=== PATIENT | female | born 1940 | race Caucasian/White ===

== ENCOUNTER → 2016-10-01 | Outpatient (CLI) | payer MEDICARE, OTHER ==
[~2016-10-01] MED LIST: ACHYD1T PO; ASP81TEC PO; CALC-80 PO; DCS100C PO; ESTR1TAB27 PO; ESTR42.52 VG; IBP800T PO; MULT1CAP27 PO; OMEP20CA12 PO
--- NOTE | 2016-10-01 17:53 | Diagnostic Imaging Report ---
CLINICAL INDICATION: Patient with complaints of sciatica, right hip pain, and buttock and lower back pain. EXAM: X-ray of the lumbar spine, three views. COMPARISON: None. FINDINGS: There is no acute lumbar spine fracture. There is multilevel lumbar spine degenerative disease with vertebral body spurs and lower lumbar spine facet arthropathy. There is severe loss of intervertebral disc height at the L4-L5 level and moderate loss at the L3-L4 and L5-S1 levels. There is grade 1 retrolisthesis of L4 on L5. There is mild left curvature of the thoracolumbar spine. There is joint space narrowing and subchondral sclerosis involving the right hip, likely related to degenerative disease. Surgical clips are seen overlying the right upper quadrant which could be related to cholecystectomy changes. The sacroiliac joints, sacrum, and visualized portions of the pelvis are unremarkable. IMPRESSION: 1: There is no acute lumbar spine fracture. 2: There is multilevel lumbar spine degenerative disease including grade 1 anterolisthesis of L4 on L5. 3: There is vxogauba-ln-egobix degenerative disease of the right hip which is partially visualized. Dictated by: Dictated on workstation # [id number]
--- NOTE | 2016-10-01 19:14 | Diagnostic Imaging Report ---
EXAMINATION: AP view of the pelvis and AP and frog lateral views of both hips. INDICATION: Right hip and buttock pain. Back pain. FINDINGS: There are bilateral advanced hip osteoarthritic changes, much worse on the right side with severe joint space loss and prominent osteophytes with near [id number] appearance. Lateral spurs are seen. The left hip demonstrates only mild joint space loss with subchondral sclerosis and spurs noted. The SI joints demonstrate mild degenerative changes. No fracture or dislocation is seen. No radiopaque foreign body. IMPRESSION: Bilateral hip osteoarthritis, severe on the right side and moderate on the left. Dictated by: Dictated on workstation # [id number]
== END ==
LOC: RAD 13:20
PROVIDERS: ATTEND Chiropractor Sports Physician
DX: M47.816 Spondylosis without myelopathy or radiculopathy, lumbar region (principal); M16.0 Bilateral primary osteoarthritis of hip
CPT/HCPCS: 72100; 73523

== ENCOUNTER → 2020-09-25 | Outpatient (CLI) | payer MEDICARE, OTHER ==
[~2020-09-25] MED LIST changes: +GADOBUTROL 10 MMOL/10 ML (GADAVIST) VIAL IV ONE
--- NOTE | 2020-09-25 17:44 | Diagnostic Imaging Report ---
PROCEDURE: MR imaging of the brain without contrast. TECHNIQUE: Multiplanar, multisequence MR imaging of the brain was performed without contrast. INDICATION: Headache. No prior studies are available for comparison. The ventricles and sulci are appropriate for the patient's age. There are mild periventricular white matter changes noted, likely on the basis of chronic microvascular ischemia. There is no diffusion restriction identified to suggest acute ischemia. The normal expected flow-voids within the carotid siphons are seen. No acute intra-axial or extra-axial hemorrhage is detected. The corpus callosum is unremarkable. The sella and parasellar structures are unremarkable. IMPRESSION: Changes of chronic microvascular ischemia. No acute intracranial process is detected. Dictated by: Dictated on workstation # [id number]
== END ==
LOC: RAD 14:49
PROVIDERS: ATTEND Nurse Practitioner Family
DX: I67.82 Cerebral ischemia (principal)
CPT/HCPCS: 70551

== ENCOUNTER 2020-12-18 05:46 | Outpatient (CLI) | payer MEDICARE, OTHER ==
[~2020-12-18] VITALS: Ht 167.7 cm; Wt 88.2 kg
[~2020-12-18 05:46] MED LIST changes: -GADOBUTROL 10 MMOL/10 ML (GADAVIST) VIAL IV ONE
[2020-12-18] MEDS ORDERED: OMEP40CA6 PO (10:05)
[2020-12-18] MEDS ORDERED: ASPI-999 PO (10:05)
[2020-12-18] MEDS ORDERED: FURO20TA4 PO (10:05)
[2020-12-18] MEDS ORDERED: PARO20TA5 PO (10:05)
[2020-12-18] MEDS ORDERED: LEVO25CA4 PO (10:05)
== END 2020-12-18 10:10 | disposition home or self-care (01) ==
LOC: PREOP 05:46
PROVIDERS: ATTEND Specialist
DX: Z01.818 Encounter for other preprocedural examination (principal)

== ENCOUNTER 2020-12-21 10:23 | Day surgery (SDC) | payer MEDICARE, OTHER ==
[~2020-12-21] VITALS: Ht 167.7 cm; Wt 88.2 kg
[~2020-12-21 10:23] MED LIST changes: +ASPI-999 PO; +FURO20TA4 PO; +LEVO25CA4 PO; +OMEP40CA6 PO; +PARO20TA5 PO
[2020-12-21] MEDS: TETRACAINE 0.5% OPHTH SOLN 4 ML BTL (SINGLE DOSE ONLY) OU PRN ×4 (10:39→10:58)
[2020-12-21 10:45] VITALS: BP 119/85
[2020-12-21] MEDS ORDERED: LIDOCAINE PF 1% 2 ML VIAL IR PRN (10:45)
[2020-12-21] MEDS ORDERED: TIMOLOL MALEATE 0.5% 5 ML (TIMOPTIC) BTL OU PRN (10:45)
[2020-12-21] MEDS ORDERED: MOXIFLOXACIN OPHTH SOLN 5 MG/ML 0.3 ML SYRINGE OP ONE (10:45)
[2020-12-21] MEDS ORDERED: POVIDONE (BETADINE) OPHTH SOLN 5% 30 ML OP ONE (10:45)
[2020-12-21] MEDS: PHENYLEPHRINE 10% OPHTH (NEO-SYN) 5 ML BTL OU SCH ×3 (10:46→10:58)
[2020-12-21] MEDS: TROPICAMIDE 1% OPH SOLN (MYDRIACYL) 15 ML BTL OP SCH ×3 (10:47→10:58)
--- NOTE | 2020-12-21 11:14 | Ophthalmologist Pre-Op Note ---
Pre-Operative Progress Note H&P Reviewed The H&P was reviewed, patient examined and no changes noted. Date H&P Reviewed: Dec 21, 2020 Time H&P Reviewed: 11:13 Pre-Op Dx Cataract, Left Eye DANE KRISHNAN MD Dec 21, 2020 11:14
[2020-12-21] MEDS ORDERED: MIDAZOLAM 2 MG/2 ML (VERSED) VIAL ONE (11:17)
--- NOTE | 2020-12-21 11:36 | Ophthalmology Operative Report ---
Cataract removal/placement IOL PREOPERATIVE DIAGNOSIS: Cataract Left Eye POSTOPERATIVE DIAGNOSIS: Cataract Left Eye PROCEDURE: Cataract removal and placement of posterior chamber implant, left eye SURGEON: Carlos Krishnan ANESTHESIA: Topical with sedation COMPLICATIONS: None ESTIMATED BLOOD LOSS: Minimal DESCRIPTION OF PROCEDURE: After proper informed consent was obtained, the patient, a 80 female, was taken to the Operating Room and the left eye was anesthetized with tetracaine. The left eye was then prepped and draped in the usual manner. A wire lid speculum was placed. A paracentesis was made at the left hand position. Preservative free lidocaine was injected into the anterior chamber followed by viscoelastic. A clear corneal incision was made in the temporal position. A capsulorrhexis was preformed and the central nuclear and cortical material were removed. The posterior capsule was polished and an Varinder 22.0 AU00T0 was placed into the capsular bag. The residual viscoelastic was aspirated and balanced saline solution was injected into the anterior chamber. Moxifloxacin was injected into the anterior chamber. The wound was checked and found to be water tight. The patient tolerated the procedure well without complications. CARLOS KRISHNAN MD Dec 21, 2020 11:36
[2020-12-21 11:46] VITALS: BP 130/89
[2020-12-21] MEDS ORDERED: acetaZOLAMIDE ER 500 MG CAP (DIAMOX SEQUELS) PO ONE (12:00)
--- NOTE | 2020-12-21 14:06 | Anesthesia-General Post-Op ---
MAC Patient Condition Mental Status/LOC: Same as Preop Cardiovascular: Satisfactory Nausea/Vomiting: Absent Respiratory: Satisfactory Pain: Controlled Complications: Absent Post Op Complications Complications None Follow Up Care/Instructions Patient Instructions None needed. Anesthesiology Discharge Order Discharge Order Patient is doing well, no complaints, stable vital signs, no apparent adverse anesthesia problems. No complications reported per nursing. MAEVE ESPINOZA CRNA Dec 21, 2020 14:06
== END 2020-12-21 11:46 | disposition home or self-care (01) ==
LOC: SDC 10:23
PROVIDERS: ATTEND Specialist
DX: H25.12 Age-related nuclear cataract, left eye (principal); R06.02 Shortness of breath; R35.0 Frequency of micturition; R51.9 Headache, unspecified; Z79.899 Other long term (current) drug therapy; Z79.82 Long term (current) use of aspirin
CPT/HCPCS: 66984; V2632

== ENCOUNTER 2020-12-28 07:05 | Outpatient (CLI) | payer MEDICARE, OTHER ==
[~2020-12-28] VITALS: Ht 167.7 cm; Wt 88.2 kg
== END 2021-01-02 15:26 | disposition home or self-care (01) ==
LOC: PREOP 07:05
PROVIDERS: ATTEND Specialist
DX: Z01.818 Encounter for other preprocedural examination (principal)

== ENCOUNTER 2021-01-04 10:15 | Day surgery (SDC) | payer MEDICARE, OTHER ==
[~2021-01-04] VITALS: Ht 167.7 cm; Wt 88.2 kg
[2021-01-04] MEDS: TETRACAINE 0.5% OPHTH SOLN 4 ML BTL (SINGLE DOSE ONLY) OU PRN ×4 (10:25→10:42)
[2021-01-04] MEDS ORDERED: TIMOLOL MALEATE 0.5% 5 ML (TIMOPTIC) BTL OU PRN (10:30)
[2021-01-04] MEDS ORDERED: MOXIFLOXACIN OPHTH SOLN 5 MG/ML 0.3 ML SYRINGE OP ONE (10:30)
[2021-01-04] MEDS ORDERED: POVIDONE (BETADINE) OPHTH SOLN 5% 30 ML OP ONE (10:30)
[2021-01-04] MEDS ORDERED: LIDOCAINE PF 1% 2 ML VIAL IR PRN (10:30)
[2021-01-04] MEDS: TROPICAMIDE 1% OPH SOLN (MYDRIACYL) 15 ML BTL OP SCH ×3 (10:31→10:42)
[2021-01-04] MEDS: PHENYLEPHRINE 10% OPHTH (NEO-SYN) 5 ML BTL OU SCH ×3 (10:32→10:42)
[2021-01-04 10:33] VITALS: BP 134/94
--- NOTE | 2021-01-04 10:48 | Ophthalmologist Pre-Op Note ---
Pre-Operative Progress Note H&P Reviewed The H&P was reviewed, patient examined and no changes noted. Date H&P Reviewed: Jan 04, 2021 Time H&P Reviewed: 10:48 Pre-Op Dx Cataract, Right Eye DANE KRISHNAN MD Jan 04, 2021 10:48
[2021-01-04] MEDS ORDERED: MIDAZOLAM 2 MG/2 ML (VERSED) VIAL ONE (10:52)
--- NOTE | 2021-01-04 11:09 | Ophthalmology Operative Report ---
Cataract removal/placement IOL PREOPERATIVE DIAGNOSIS: Cataract Right Eye POSTOPERATIVE DIAGNOSIS: Cataract Right Eye PROCEDURE: Cataract removal and placement of posterior chamber implant, right eye SURGEON: Carlos Krishnan ANESTHESIA: Topical with sedation COMPLICATIONS: None ESTIMATED BLOOD LOSS: Minimal DESCRIPTION OF PROCEDURE: After proper informed consent was obtained, the patient, a 80 female, was taken to the Operating Room and the right eye was anesthetized with tetracaine. The right eye was then prepped and draped in the usual manner. A wire lid speculum was placed. A paracentesis was made at the left hand position. Preservative free lidocaine was injected into the anterior chamber followed by viscoelastic. A clear corneal incision was made in the temporal position. A capsulorrhexis was preformed and the central nuclear and cortical material were removed. The posterior capsule was polished and Varinder [id number] 19.0 IOL was placed into the capsular bag. The residual viscoelastic was aspirated and balanced saline solution was injected into the anterior chamber. Moxifloxacin was injected into the anterior chamber. The wound was checked and found to be water tight. The patient tolerated the procedure well without complications. CARLOS KRISHNAN MD Jan 04, 2021 11:09
[2021-01-04 11:15] VITALS: BP 136/96
--- NOTE | 2021-01-04 11:16 | Anesthesia-General Post-Op ---
MAC Patient Condition Mental Status/LOC: Same as Preop Cardiovascular: Satisfactory Nausea/Vomiting: Absent Respiratory: Satisfactory Pain: Controlled Complications: Absent Post Op Complications Complications None Follow Up Care/Instructions Patient Instructions None needed. Anesthesiology Discharge Order Discharge Order Patient is doing well, no complaints, stable vital signs, no apparent adverse anesthesia problems. No complications reported per nursing. MAYLIN CHOU CRNA Jan 04, 2021 11:16
[2021-01-04] MEDS ORDERED: acetaZOLAMIDE ER 500 MG CAP (DIAMOX SEQUELS) PO ONE (11:45)
== END 2021-01-04 11:16 ==
LOC: SDC 10:15
PROVIDERS: ATTEND Specialist
DX: H25.811 Combined forms of age-related cataract, right eye (principal); Z79.899 Other long term (current) drug therapy; Z79.82 Long term (current) use of aspirin; Z79.890 Hormone replacement therapy; Z90.710 Acquired absence of both cervix and uterus; Z86.73 Personal history of transient ischemic attack (TIA), and cerebral infarction without residual deficits; Z90.89 Acquired absence of other organs; Z80.9 Family history of malignant neoplasm, unspecified
CPT/HCPCS: 66984; V2632

== ENCOUNTER 2021-05-13 19:15 | Inpatient (IN) | payer MEDICARE, OTHER ==
[~2021-05-13] VITALS: Ht 167.7 cm; Wt 92.7 kg
[2021-05-13] MEDS ORDERED: RX-ALBUTEROL INHALER 8.5 GM HFA (PROAIR) IH STA (19:57)
--- NOTE | 2021-05-13 19:57 | ED Respiratory ---
General Chief Complaint: Respiratory Problems Stated Complaint: WEAKNESS Source: patient Exam Limitations: no limitations History of Present Illness Date Seen by Provider: May 13, 2021 Time Seen by Provider: 19:33 Initial Comments Patient to the ER by private conveyance from home with chief complaint of shortness of air weakness. No pain. She had a productive cough but no fevers or chills. She says been going on for couple weeks and she thought it would jus t go away and get better. She has COPD she is not been on steroids. She went to see her primary care physician, Dr. Murray today. She was set up with home oxygen but is still feeling very weak and short of air. No nausea diarrhea or sick contacts. She has to COVID vaccines plus a booster as well as influenza vaccine. She was sent home with some breathing treatments and told to take them tonight but she has not used them yet. Patient states she has a history of atrial fibrillation on 81 mg aspirin daily. Allergies and Home Medications Allergies Coded Allergies: Iodinated Contrast Media (Unverified Allergy, Unknown, 08/04/11) Patient Home Medication List Home Medication List Reviewed: Yes Aspirin (Aspirin) 81 Mg Tab.chew, 81 MG PO DAILY, (Reported) Entered as Reported by: ELVA MEYER on 12/18/201004 Furosemide (Furosemide) 20 Mg Tablet, 20 MG PO DAILY, (Reported) Entered as Reported by: ELVA MEYER on 12/18/201004 Levothyroxine Sodium (Levothyroxine) 25 Mcg Capsule, 25 MCG PO DAILY, (Reported) Entered as Reported by: ELVA MEYER on 12/18/201004 Omeprazole (Omeprazole) 40 Mg Capsule.dr, 40 MG PO DAILY, (Reported) Entered as Reported by: ELVA MEYER on 12/18/201004 Paroxetine HCl (Paroxetine HCl) 20 Mg Tablet, 20 MG PO DAILY, (Reported) Entered as Reported by: ELVA MEYER on 12/18/201004 Review of Systems Review of Systems Constitutional: No chills, No diaphoresis, No fever; malaise, weakness EENTM: No ear discharge, No hearing loss, No ear pain Respiratory: cough, phlegm, short of breath Cardiovascular: No edema, No palpitations Gastrointestinal: No abdominal pain, No constipation, No diarrhea, No nausea Genitourinary: No discharge, No dysuria Musculoskeletal: No back pain, No joint pain All Other Systems Reviewed Negative Unless Noted: Yes Past Ldunsyi-Qscskp-Xrduav Hx Patient Social History Tobacco Use?: No Use of E-Cig and/or Vaping dev: No Past Medical History Reproductive Disorders: No Physical Exam Vital Signs - First Documented 05/13/21 19:15 Temp 35.7 Pulse 136 Resp 30 B/P (MAP) 119/65 (83) Pulse Ox 96 Capillary Refill : Height: '" Weight: lbs. oz. kg; BMI Method:Stated General Appearance: moderate distress, obese Eyes: Bilateral Eye Normal Inspection, Bilateral Eye PERRL, Bilateral Eye EOMI HEENT: PERRL/EOMI, normal ENT inspection, TMs normal, pharynx normal Neck: non-tender, full range of motion, supple, normal inspection Respiratory: lungs clear, normal breath sounds, respiratory distress, accessory muscle use Cardiovascular: normal peripheral pulses, regular rate, rhythm, no edema Gastrointestinal: normal bowel sounds, non tender, soft Extremities: normal range of motion, non-tender, normal inspection, normal capillary refill Neurologic/Psychiatric: alert, oriented x 3 Skin: normal color, warm/dry Focused Exam Lactate Level 05/13/21 22:40: Lactic Acid Level 5.17*H Lactic Acid Level Laboratory Tests Test 05/13/21 20:05 05/13/21 22:40 Lactic Acid Level 3.88 MMOL/L (0.50-2.00) *H 5.17 MMOL/L (0.50-2.00) *H Progress/Results/Core Measures Suspected Sepsis SIRS Temperature: Pulse: Respiratory Rate: Laboratory Tests 05/13/21 20:05: White Blood Count 12.5H Blood Pressure / Mean: 05/13/21 22:40: Lactic Acid Level 5.17*H Laboratory Tests 05/13/21 20:05: Creatinine 1.13, INR Comment 1.1, Platelet Count 254, Total Bilirubin 0.4 Results/Orders Lab Results Laboratory Tests Test 05/13/21 19:30 05/13/21 20:05 05/13/21 21:05 05/13/21 22:40 Range/Units Influenza Type A (RT-PCR) Not Detected Not Detecte Influenza Type B (RT-PCR) Not Detected Not Detecte SARS-CoV-2 RNA (RT-PCR) Not Detected Not Detecte White Blood Count 12.5 H 4.3-11.0 10^3/uL Red Blood Count 5.02 3.80-5.11 10^6/uL Hemoglobin 11.6 11.5-16.0 g/dL Hematocrit 39 35-52 % Mean Corpuscular Volume 77 L 80-99 fL Mean Corpuscular Hemoglobin 23 L 25-34 pg Mean Corpuscular Hemoglobin Concent 30 L 32-36 g/dL Red Cell Distribution Width 18.2 H 10.0-14.5 % Platelet Count 254 130-400 10^3/uL Mean Platelet Volume 10.9 9.0-12.2 fL Immature Granulocyte % (Auto) 1 % Neutrophils (%) (Auto) 72 42-75 % Lymphocytes (%) (Auto) 19 12-44 % Monocytes (%) (Auto) 8 0-12 % Eosinophils (%) (Auto) 1 0-10 % Basophils (%) (Auto) 0 0-10 % Neutrophils # (Auto) 9.0 H 1.8-7.8 10^3/uL Lymphocytes # (Auto) 2.3 1.0-4.0 10^3/uL Monocytes # (Auto) 1.0 0.0-1.0 10^3/uL Eosinophils # (Auto) 0.1 0.0-0.3 10^3/uL Basophils # (Auto) 0.0 0.0-0.1 10^3/uL Immature Granulocyte # (Auto) 0.1 0.0-0.1 10^3/uL Prothrombin Time 14.6 12.2-14.7 SEC INR Comment 1.1 0.8-1.4 Activated Partial Thromboplast Time 28 24-35 SEC D-Dimer 19.08 H 0.00-0.49 UG/ML Sodium Level 135 135-145 MMOL/L Potassium Level 4.0 3.6-5.0 MMOL/L Chloride Level 105 98-107 MMOL/L Carbon Dioxide Level 16 L 21-32 MMOL/L Anion Gap 14 5-14 MMOL/L Blood Urea Nitrogen 14 7-18 MG/DL Creatinine 1.13 0.60-1.30 MG/DL Estimat Glomerular Filtration Rate 49 BUN/Creatinine Ratio 12 Glucose Level 148 H 70-105 MG/DL Lactic Acid Level 3.88 *H 5.17 *H 0.50-2.00 MMOL/L Calcium Level 10.4 H 8.5-10.1 MG/DL Corrected Calcium 10.2 H 8.5-10.1 MG/DL Total Bilirubin 0.4 0.1-1.0 MG/DL Aspartate Amino Transf (AST/SGOT) 19 5-34 U/L Alanine Aminotransferase (ALT/SGPT) 7 0-55 U/L Alkaline Phosphatase 96 40-136 U/L Troponin I 0.162 H <0.028 NG/ML B-Type Natriuretic Peptide 415.7 H <100.0 PG/ML Total Protein 7.7 6.4-8.2 GM/DL Albumin 4.3 3.2-4.5 GM/DL Urine Color YELLOW Urine Clarity CLEAR Urine pH 6.0 5-9 Urine Specific [place] >=1.030 1.016-1.022 Urine Protein 1+ H NEGATIVE Urine Glucose (UA) NEGATIVE NEGATIVE Urine Ketones NEGATIVE NEGATIVE Urine Nitrite NEGATIVE NEGATIVE Urine Bilirubin NEGATIVE NEGATIVE Urine Urobilinogen 1.0 < = 1.0 MG/DL Urine Leukocyte Esterase 1+ H NEGATIVE Urine RBC (Auto) NEGATIVE NEGATIVE Urine RBC NONE /HPF Urine WBC 25-50 H /HPF Urine Squamous Epithelial Cells 2-5 /HPF Urine Crystals NONE /LPF Urine Bacteria FEW H /HPF Urine Casts PRESENT /LPF Urine Hyaline Casts 5-10 H /LPF Urine Mucus LARGE H /LPF Urine Culture Indicated YES My Orders Orders - CHEIKH BYRNE 19 Inhouse Test (05/13/21 19:51) Influenza A And B By Pcr (05/13/21 19:51) Arterial Blood Gas (05/13/21 19:51) Cbc With Automated Diff (05/13/21 19:51) Comprehensive Metabolic Panel (05/13/21 19:51) Blood Culture (05/13/21 19:51) Sputum Culture (05/13/21 19:51) Urinalysis (05/13/21 19:51) Urine Culture (05/13/21 19:51) Protime With Inr (05/13/21 19:51) Partial Thromboplastin Time (05/13/21 19:51) Chest 1 View, Ap/Pa Only (05/13/21 19:51) Ed Iv/Invasive Line Start (05/13/21 19:51) Ed Iv/Invasive Line Start (05/13/21 19:51) Ekg Tracing (05/13/21 19:51) O2 (05/13/21 19:51) Remove Rings In Anticipation O (05/13/21 19:51) Lactic Acid Analyzer (05/13/21 19:51) Ns Iv 1000 Ml (Sodium Chloride 0.9%) (05/13/21 20:00) Ceftriaxone 1 Gm Pre-Mix (Rocephin 1 Gm (05/13/21 20:00) Azithromycin Injection (Zithromax Inject (05/13/21 20:00) Bnp [place] (05/13/21 19:51) Troponin I [place] (05/13/21 19:51) Methylprednisolone Sod Succ (Solu-Medrol (05/13/21 20:00) Rx-Albuterol Inhaler (Rx-Ventolin Hfa In (05/13/21 19:57) Fibrin Degradation Products (05/13/21 20:54) Ct Angio Chest W (05/13/21 20:54) Ed Iv/Invasive Line Start (05/13/21 20:54) Ns Iv 1000 Ml (Sodium Chloride 0.9%) (05/13/21 21:00) Lorazepam Injection (Ativan Injection) (05/13/21 21:30) Iohexol Injection (Omnipaque 350 Mg/Ml 1 (05/13/21 21:30) Received Contrast (Hold Metformin- Contr (05/13/21 21:30) Ns (Ivpb) (Sodium Chloride 0.9% Ivpb Bag (05/13/21 21:30) Enoxaparin Injection (Lovenox Injectio (05/13/21 22:00) Enoxaparin Injection (Lovenox Injectio (05/13/21 22:00) Enoxaparin Injection (Lovenox Injection) (05/13/21 21:57) Medications Given in ED Current Medications Medications Dose Ordered Sig/Carolann Route Start Time Stop Time Status Last Admin Dose Admin Azithromycin 500 mg/Sodium Chloride 255 ml @ 250 mls/hr ONCE ONCE IV 05/13/21 20:00 05/13/21 21:01 DC 05/13/21 21:15 250 MLS/HR Ceftriaxone Sodium/Dextrose 50 ml @ 100 mls/hr ONCE ONCE IV 05/13/21 20:00 05/13/21 20:29 DC 05/13/21 20:19 100 MLS/HR Enoxaparin Sodium 100 mg STK-MED ONCE .ROUTE 05/13/21 21:57 05/13/21 21:59 DC 05/13/21 22:00 90 MG Iohexol 100 ml ONCE ONCE IV 05/13/21 21:30 05/13/21 22:45 DC 05/13/21 21:42 80 ML Lorazepam 0.25 mg ONCE ONCE IVP 05/13/21 21:30 05/13/21 21:31 DC 05/13/21 21:50 0.25 MG Methylprednisolone Sodium Succinate 125 mg ONCE ONCE IVP 05/13/21 20:00 05/13/21 20:01 DC 05/13/21 20:19 125 MG Sodium Chloride 100 ml ONCE ONCE IV 05/13/21 21:30 05/13/21 22:45 DC 05/13/21 21:42 70 ML Vital Signs/I&O 05/13/21 05/13/21 05/13/21 05/13/21 19:15 19:15 19:15 20:00 Temp 35.7 Pulse 136 Resp 30 B/P (MAP) 119/65 (83) Pulse Ox 96 93 O2 Delivery Nasal Cannula Nasal Cannula Nasal Cannula Nasal Cannula O2 Flow Rate 3.00 3.00 2.00 2.00 05/14/21 00:00 Intake Total 2305 ml Balance 2305 ml Capillary Refill : Progress Note #1: Time: 19:56 Progress Note Sepsis work-up with a cautious amount of fluids starting at 1 L with the possibility of her having a viral pneumonia versus seeing what her chest x-ray and BNP show before we would give her anymore. Rocephin and azithromycin. She says she was newly diagnosed with COPD today. She does have some increased work of breathing so were going to give her a ProAir inhaler. Progress Note #2: Time: 22:00 Progress Note 90mg subcutaneous Lovenox. Consult with [facility] about potential endovascular intervention. Gave report to triage nurse and they will call us back after they reach out. Progress Note #3: Time: 23:18 Progress Note Mark from [facility] called back to state that if the patient requires an intervention the ICU outpatient facility physical therapist has a bed and is willing to accept the patient. He has yet to however get a hold of the specialist and will call us as soon as he has done it. Patient is willing to go to and get the intervention done if it is offered to her. She is still working hard to breathe. We gave her a bubble humidifier and some ice chips. She is not having any chest pain. Did discuss the case with Dr. Murray her primary care provider who saw her today. She states is the first time with Dr. Murray met her and agrees with transitioning her somewhere for intervention if possible. Progress Note #4: Time: 23:[address] Li interventional from [facility] recommends after reviewing the imaging and patient's labs that she is not amenable to endovascular treatment. He would recommend anticoagulation and medical management. ECG Initial ECG Impression Date: May 13, 2021 Initial ECG Impression Time: 19:25 Initial ECG Rate: 127 Initial ECG Rhythm: S.Tach Initial ECG Intervals: Normal Initial ECG Impression: Nonspecific Changes Comment Sinus tachycardia without clinically relevant ST elevation or depression. PVCs noted. Diagnostic Imaging Diagonstic Imaging: Xray Plain Films/CT/US/NM/MRI: chest Comments COPD0. [facility]. [place], [place] NAME: MISSAEL VILLAR Krunal MED REC#: [id number] PT STATUS: REG ER : 1940 PHYSICIAN: CHEIKH BYRNE MD ADMIT DATE: 05/13/21/ER Signed Date of Exam:05/13/21 CHEST 1 VIEW, AP/PA ONLY CHEST 1 VIEW, AP/PA ONLY Indication: Shortness of air Comparison: CTA chest from 08/06/2011 Findings: No focal airspace disease in the visualized lungs. Please note that the posterior lower lobes are poorly evaluated by portable radiography. No pleural effusion or pneumothorax. Normal heart size. Moderate-sized hiatal hernia. Impression: 1. No acute cardiopulmonary process by portable radiography. Dictated by: Dictated on workstation # [id number] Dict: 05/13/212100 Trans: 05/13/212100 [facility] [id number] Interpreted by: KEREN ALMEIDA MD Electronically signed by: KEREN ALMEIDA MD 02/28/22 2101 Reviewed: Reviewed by Me Departure Communication (Admissions) Time/Spoke to Admitting Phy: 23:35 Discussed the case with Dr. Murray who agrees to admit the patient on Lovenox and consult cardiology. Time/Spoke to Consulting Phy: 23:35 Discussed the case with Dr. Laughlin from cardiology who agrees to consult on the case. Impression Primary Impression: Pulmonary embolism Qualified Codes: I26.09 - Other pulmonary embolism with acute cor pulmonale Additional Impression: Acute respiratory failure with hypoxemia Disposition: ADMITTED INPATIENT Condition: Stable Admissions Decision to Admit Reason: Admit from ER (General) Decision to Admit/Date: May 13, 2021 Time/Decision to Admit Time: 23:25 Departure-Patient Inst. Referrals: KHURRAM MURRAY MD (PCP/Family) Primary Care Physician CHEIKH BYRNE May 13, 2021 19:57
[2021-05-13] MEDS ORDERED: NS IV 1000 ML 1,000 ML IV SCH ×2 (20:00→21:00)
[2021-05-13] MEDS ORDERED: methylPREDNISolone 125 MG (Solu-MEDROL) VIAL IVP ONE (20:00)
[2021-05-13] MEDS ORDERED: cefTRIAXone 1 GM PRE-MIX 50 ML IV ONE (20:00)
[2021-05-13] MEDS ORDERED: AZITHROMYCIN INJECTION 500 MG in NS (IVPB) 250 ML IV ONE (20:00)
[2021-05-13 20:15] LABS: BASOPHILS % (AUTO) 0 % (0-10); EOSINOPHILS # (AUTO) 0.1 10^3/uL (0.0-0.3); EOSINOPHILS % (AUTO) 1 % (0-10); HEMATOCRIT 39 % (35-52); HEMOGLOBIN 11.6 g/dL (11.5-16.0); LYMPHOCYTES # (AUTO) 2.3 10^3/uL (1.0-4.0); LYMPHOCYTES % (AUTO) 19 % (12-44); MEAN CORPUSCULAR HEMOGLOBIN 23 pg (25-34); MEAN CORPUSCULAR HGB CONC 30 g/dL (32-36); MEAN CORPUSCULAR VOLUME 77 fL (80-99); MEAN PLATELET VOLUME 10.9 fL (9.0-12.2); MONOCYTES % (AUTO) 8 % (0-12); NEUTROPHILS % (AUTO) 72 % (42-75); PLATELET COUNT 254 10^3/uL (130-400); WHITE BLOOD COUNT 12.5 10^3/uL (4.3-11.0)
[2021-05-13 20:28] LABS: INR 1.1 (0.8-1.4); PROTHROMBIN TIME PATIENT 14.6 SEC (12.2-14.7)
[2021-05-13 20:31] LABS: ALBUMIN 4.3 GM/DL (3.2-4.5)
[2021-05-13 20:33] LABS: CALCIUM 10.4 MG/DL (8.5-10.1)
[2021-05-13 20:34] LABS: TOTAL PROTEIN 7.7 GM/DL (6.4-8.2)
[2021-05-13 20:36] LABS: BILIRUBIN,TOTAL 0.4 MG/DL (0.1-1.0)
[2021-05-13 20:38] LABS: CREATININE SERUM 1.13 MG/DL (0.60-1.30)
--- NOTE | 2021-05-13 21:03 | Diagnostic Imaging Report ---
CHEST 1 VIEW, AP/PA ONLY Indication: Shortness of air Comparison: CTA chest from 08/06/2011 Findings: No focal airspace disease in the visualized lungs. Please note that the posterior lower lobes are poorly evaluated by portable radiography. No pleural effusion or pneumothorax. Normal heart size. Moderate-sized hiatal hernia. Impression: 1. No acute cardiopulmonary process by portable radiography. Dictated by: Dictated on workstation # [id number]
[2021-05-13 21:16] LABS: BILIRUBIN,URINE NEGATIVE (NEGATIVE); CLARITY,URINE CLEAR; COLOR,URINE YELLOW; GLUCOSE, URINE (UA) NEGATIVE (NEGATIVE); KETONES,URINE NEGATIVE (NEGATIVE); LEUKOCYTE ESTERASE ,URINE 1+ (NEGATIVE); NITRITE,URINE NEGATIVE (NEGATIVE); PROTEIN,URINE 1+ (NEGATIVE)
[2021-05-13] MEDS ORDERED: NS 100 ML (IVPB) BAG IV ONE (21:30)
[2021-05-13] MEDS ORDERED: HOLD METFORMIN - RECEIVED CONTRAST 20 ML VIAL IV SCH (21:30)
[2021-05-13] MEDS ORDERED: LORazepam INJ 2 MG/ML (ATIVAN) VIAL IVP ONE (21:30)
[2021-05-13] MEDS ORDERED: IOHEXOL 350 MG/ML 100 ML (OMNIPAQUE 350) VIAL IV ONE (21:30)
[2021-05-13 21:36] LABS: BACTERIA,URINE FEW /HPF; WBC,URINE 25-50 /HPF
--- NOTE | 2021-05-13 21:54 | Diagnostic Imaging Report ---
PROCEDURE: CT angiography Chest TECHNIQUE: After intravenous administration of contrast, thin section axial CT angiography of the chest was performed. 3D MIP reconstructions were made. All CT scans use one or more of the following dose optimizing techniques: automated exposure control, MA and/or KvP adjustment based on a patient size and exam type, or iterative reconstruction. INDICATION: Shortness of air and weakness COMPARISON: 08/06/2011 FINDINGS: Vasculature: There is a large burden of acute bilateral pulmonary emboli centered at the distal right and left main pulmonary arteries and extending into all 5 lobar and segmental arteries. Mild flattening of the intraventricular septum raises the possibility of elevated right ventricular strain. Normal caliber thoracic aorta. The aorta is not opacified and therefore assessment for dissection is limited. Heart and mediastinum: Visualized thyroid is normal. No supraclavicular, axillary, or intra-thoracic lymphadenopathy. The heart is normal in size without pericardial effusion. Large hiatal hernia with approximately half the stomach in the chest. Pleura: No pleural effusion or pneumothorax. Lungs and airway: No endoluminal lesion in the trachea or central bronchi. No pneumonia or edema. Upper abdomen: Allowing for the phase of contrast, no acute abnormality in the upper abdomen is seen. Musculoskeletal: No concerning osseous lesion. IMPRESSION: 1. Large burden of acute bilateral pulmonary emboli with possible right ventricular strain. Dictated by: Dictated on workstation # [id number]
[2021-05-13] MEDS ORDERED: ENOXAPARIN 100 MG/1 ML (LOVENOX) SYR ONE (21:57)
[2021-05-13] MEDS ORDERED: ENOXAPARIN 60 MG/0.6 ML (LOVENOX) SYR SC ONE (22:00)
[2021-05-13] MEDS ORDERED: ENOXAPARIN 30 MG/0.3 ML (LOVENOX) SYR SC ONE (22:00)
[2021-05-14] VITALS (15 sets, daily range): BP systolic 85–122; BP diastolic 52–96
[2021-05-14] MEDS ORDERED: 1/2 NS IV SOLUTION 1,000 ML IV ONE (00:48)
--- NOTE | 2021-05-14 00:55 | Tele-ICU Consult ---
History of Present Illness History of Present Illness Date Seen by Provider: May 14, 2021 Time Seen by Provider: 12:30 Date of Admission This virtual visit was conducted using real time audio/video. Thank you for asking us to see this patient for respiratory insufficiency due to B pulmonary emboli and COPD PMH: COPD, previous afib. SH: smoking history Y PE: VSS. O2 sat 96 % on NC HEENT: No obvious masses, adenopathy or JVD. Chest: clear to auscultation. CV: RRR S1 S2 No murmur or added sounds. Abd: Non-tender. Bowel sounds Y. : Unremarkable. More[place] N. [employer] HAND/psychiatric: Grossly intact. No obvious focal findings. Extremities: No edema. Capillary refill < 3 seconds. Skin: unremarkable. Results: Elevated WCC 12.5, D-dimer 190.08, Lactate 3.88, Trop 0.62, BNP 415.7. . CXR: clear. CTAC w B PEs. Available chart/ vitals / labs / images reviewed. Video assessment done using teleICU camera, rest of exam as per RN. A/P: Respiratory insufficiency: Continue present management with S.medrol, albuterol, O2. Monitor for increasing oxygenation needs and/or need for intubation. Critical Care: critically ill patient. Cont. full dose Lovenox, abx. Discussed with ANNELIESE Arango.. Asked RN to reach out to eICU if any questions or concerns later. Time spent with patient/coordination of care with other health professionals (mins): 25 Allergies and Home Medications Allergies Coded Allergies: Iodinated Contrast Media (Unverified Allergy, Unknown, 08/04/11) Home Medications Aspirin 81 Mg Tab.chew, 81 MG PO DAILY, (Reported) Furosemide 20 Mg Tablet, 20 MG PO DAILY, (Reported) Levothyroxine Sodium 25 Mcg Capsule, 25 MCG PO DAILY, (Reported) Omeprazole 40 Mg Capsule.dr, 40 MG PO DAILY, (Reported) Paroxetine HCl 20 Mg Tablet, 20 MG PO DAILY, (Reported) Past Medical/Social/Family Hx Patient Social History Tobacco Use?: No Use of E-Cig and/or Vaping dev: No Substance use?: No Alcohol Use?: No Immunizations Up To Date Influenza Vaccine Up-to-Date: Yes; Up-to-Date First/Initial COVID19 Vaccinat: 2020 Second COVID19 Vaccination Niraj: 2020 Tetanus Booster (TDap): Unknown Current Status Advance Directives: No Communicates: Verbally Primary Language: Hebrew Preferred Spoken Language: Hebrew Review of Systems Constitutional: see HPI EENTM: see HPI Respiratory: no symptoms reported, see HPI Cardiovascular: see HPI Genitourinary: see HPI Musculoskeletal: see HPI Skin: see HPI All Other Systems Reviewed Negative Unless Noted: Yes Focused Exam Lactate Level 05/13/21 20:05: Lactic Acid Level 3.88*H 05/13/21 22:40: Lactic Acid Level 5.17*H Height, Weight, BMI Height: '" Weight: lbs. oz. kg; 32.00 BMI Method:Stated Lactic Acid Level Laboratory Tests Test 05/13/21 22:40 Lactic Acid Level 5.17 MMOL/L (0.50-2.00) *H Exam Exam Patient acknowledged, consented, and participated in this virtual visit which was conducted using real time audio/video Vital Signs Date Time Temp Pulse Resp B/P (MAP) Pulse Ox O2 Delivery O2 Flow Rate FiO2 05/13/21 20:00 93 Nasal Cannula 2.00 05/13/21 19:15 35.7 136 30 119/65 (83) 96 Nasal Cannula 2.00 05/13/21 19:15 Nasal Cannula 3.00 05/13/21 19:15 Nasal Cannula 3.00 I & O 05/14/21 07:00 Intake Total 2305 ml Balance 2305 ml Height & Weight Height: '" Weight: lbs. oz. kg; 32.00 BMI Method:Stated General Appearance: Mild Distress HEENT: Other Neck: Other Respiratory: Other Cardiovascular: Other (See free text.) Peripheral Pulses: 1+ Dorsalis Pedis (R), 1+ Left Dors-Pedis (L) Results Lab Laboratory Tests 05/13/21 20:05 Assessment/Plan Assessment/Plan See free text. Critical Care: Critically Ill Patient LATESHA GARRIDO MD May 14, 2021 00:55
[2021-05-14] MEDS ORDERED: RT-ALBUTEROL/IPRATROPIUM 3 ML (DUONEB) VIAL INH PRN (01:30)
[2021-05-14] MEDS ORDERED: 1/2 NS IV SOLUTION 1,000 ML IV SCH (01:45)
[2021-05-14] MEDS: RT-ALBUTEROL/IPRATROPIUM 3 ML (DUONEB) VIAL INH SCH ×2 (02:48→07:04)
[2021-05-14 04:28] LABS: BASOPHILS % (AUTO) 0 % (0-10); EOSINOPHILS % (AUTO) 0 % (0-10); HEMATOCRIT 35 % (35-52); HEMOGLOBIN 10.5 g/dL (11.5-16.0); LYMPHOCYTES # (AUTO) 1.4 10^3/uL (1.0-4.0); LYMPHOCYTES % (AUTO) 14 % (12-44); MEAN CORPUSCULAR HEMOGLOBIN 23 pg (25-34); MEAN CORPUSCULAR HGB CONC 30 g/dL (32-36); MEAN CORPUSCULAR VOLUME 78 fL (80-99); MEAN PLATELET VOLUME 10.8 fL (9.0-12.2); MONOCYTES # (AUTO) 0.3 10^3/uL (0.0-1.0); MONOCYTES % (AUTO) 3 % (0-12); NEUTROPHILS # (AUTO) 8.3 10^3/uL (1.8-7.8); NEUTROPHILS % (AUTO) 82 % (42-75); PLATELET COUNT 213 10^3/uL (130-400); WHITE BLOOD COUNT 10.1 10^3/uL (4.3-11.0)
[2021-05-14 04:34] LABS: POTASSIUM 4.4 MMOL/L (3.6-5.0)
[2021-05-14 04:35] LABS: CALCIUM 9.3 MG/DL (8.5-10.1)
[2021-05-14] MEDS ORDERED: LORazepam INJ 2 MG/ML (ATIVAN) VIAL ONE (04:36)
[2021-05-14 04:40] LABS: CREATININE SERUM 1.09 MG/DL (0.60-1.30)
[2021-05-14] MEDS ORDERED: LORazepam INJ 2 MG/ML (ATIVAN) VIAL IVP PRN (04:45)
[2021-05-14] MEDS ORDERED: POTASSIUM CL 10MEQ/50ML IVPB 50 ML IV SCH (06:00)
[2021-05-14] MEDS ORDERED: KCL 20 MEQ TAB (K-DUR) PO SCH (06:00)
[2021-05-14] MEDS ORDERED: MAGNESIUM 1 GM/100 ML IVPB 100 ML IV SCH (06:00)
[2021-05-14 06:21] LABS: ABG BASE EXCESS -12.8 MMOL/L (-2.5-2.5); ABG OXYGEN SATURATION 97 % (94-100); ABG PCO2 24 MMHG (35-45); ABG PO2 90 MMHG (79-93); ABG TCO2 12.9 MMOL/L (21.0-31.0)
[2021-05-14 06:23] LABS: ALLENS TEST YES-POS; INSPIRED O2 25%; PATIENT TEMP 36.6; VENTILATOR NO
[2021-05-14] MEDS ORDERED: LEVOTHYROXINE 75 MCG (LEVOTHROID) TABLET PO SCH (06:30)
[2021-05-14 06:36] LABS: ABG PH 7.32 (7.37-7.43)
[2021-05-14] MEDS ORDERED: NS IV 1000 ML 1,000 ML ONE (06:52)
[2021-05-14] MEDS ORDERED: FUROSEMIDE 40 MG/4 ML INJ (LASIX) IV SCH (07:00)
[2021-05-14] MEDS ORDERED: NOREPINEPHRINE 8 MG/250 ML 250 ML IV ONE (07:00)
[2021-05-14] MEDS ORDERED: PROPOFOL DRIP (ICU) 100 ML IV ONE (07:14)
[2021-05-14] MEDS ORDERED: PROPOFOL DRIP (ICU) 100 ML IV SCH (07:30)
[2021-05-14] MEDS ORDERED: NOREPINEPHRINE 8 MG/250 ML 250 ML IV SCH (08:00)
--- NOTE | 2021-05-14 08:06 | Diagnostic Imaging Report ---
INDICATION: Respiratory failure, hypoxia Frontal chest obtained at 4:56 a.m. and compared to previous day. The heart is borderline in size. Prominent hiatal hernia noted. There is no focal infiltrate or pneumothorax or pleural fluid. There is hyperinflation IMPRESSION: Borderline heart size with prominent hiatal hernia. Hyperinflation is present without focal infiltrate or pneumothorax or pleural fluid. Dictated by: Dictated on workstation # [id number]
--- NOTE | 2021-05-14 08:14 | Inpatient Code Blue ---
General Chief Complaint: Respiratory Problems Stated Complaint: P.E.,H.F.,ACUTE RESPIRATORY FAILURE W/HYPOXIA Nursing Triage Note: PT ROOM BY WHEELCHAIR. STATES SHE IS HAVING SOB AND WEAKNESS. SENT HOME FROM DR MURRAY OFFICE TODAY WITH HOME O2 Source: RN/MD Exam Limitations: clinical condition History of Present Illness Date Seen by Provider: May 14, 2021 Time Seen by Provider: 06:20 Initial Comments Responded emergently to ICU for CODE BLUE in progress in room 8. Patient has history of pulmonary emboli with saddle embolism. Patient is on Lovenox. Patient became quite anxious and then became unresponsive. She was pulseless but tachycardic in PEA. CPR was initiated. Prior to my arrival, patient did have compressions initiated and is being ventilated via bag valve mask. She has had epinephrine 1 mg IV. On arrival, patient is tachycardic on the monitor without spontaneous respirations. Quick summary obtained from ICU nursing staff. Code onset at 0615. Timing/Duration: just prior to arrival Severity: severe Allergies and Home Medications Allergies Coded Allergies: Iodinated Contrast Media (Unverified Allergy, Unknown, 08/04/11) Patient Home Medication List Home Medication List Reviewed: Yes Aspirin (Aspirin) 81 Mg Tab.chew, 81 MG PO DAILY, (Reported) Entered as Reported by: ELVA MEYER on 12/18/201004 Furosemide (Furosemide) 20 Mg Tablet, 20 MG PO DAILY, (Reported) Entered as Reported by: ELVA MEYER on 12/18/201004 Levothyroxine Sodium (Levothyroxine) 25 Mcg Capsule, 25 MCG PO DAILY, (Reported) Entered as Reported by: ELVA MEYER on 12/18/201004 Omeprazole (Omeprazole) 40 Mg Capsule.dr, 40 MG PO DAILY, (Reported) Entered as Reported by: ELVA MEYER on 12/18/201004 Paroxetine HCl (Paroxetine HCl) 20 Mg Tablet, 20 MG PO DAILY, (Reported) Entered as Reported by: ELVA MEYER on 12/18/201004 Physical Exam Vital Signs Vital Signs - First Documented 05/13/21 05/14/21 19:15 01:05 Temp 35.7 Pulse 136 Resp 30 B/P (MAP) 119/65 (83) Pulse Ox 96 FiO2 28 Capillary Refill : Height, Weight, BMI Height: '" Weight: lbs. oz. kg; 32.96 BMI Method:Stated General Appearance: other (Unresponsive with CPR in progress) Respiratory: other (Activation via [id number]) Cardiovascular: other (Pulseless with tachycardia on the monitor) Skin: cyanosis, cool, pallor Procedures/Interventions Date of ETT Placement: May 14, 2021 Time of ETT Placement: 06:37 Intubation Method: orotracheal Tube Size: 7.5 Medications: Etomidate, Succinylcholine Positive End Tide CO2: Yes Breath Sounds after Intubation: bilateral-equal Intubation Complications: no complications Post Intubation Xray: No Intubated x1 attempt with glide scope with endotracheal tube 7.5 visualized passed cords with balloon distal to cords. Good color change noted. Bilateral breath sounds noted with improvement and O2 saturations. Chest x-ray not performed due to ongoing resuscitative measures. O2 saturations noted to be 100%. BVM and ventilator with settings of rate of 20, PEEP of 5 initially and increased to 10 and tidal volume of 450 on 100% FiO2. Progress/Results/Core Measures Results/Orders Lab Results Laboratory Tests Test 05/13/21 19:30 05/13/21 20:05 05/13/21 21:05 05/13/21 22:40 Range/Units Influenza Type A (RT-PCR) Not Detected Not Detecte Influenza Type B (RT-PCR) Not Detected Not Detecte SARS-CoV-2 RNA (RT-PCR) Not Detected Not Detecte White Blood Count 12.5 H 4.3-11.0 10^3/uL Red Blood Count 5.02 3.80-5.11 10^6/uL Hemoglobin 11.6 11.5-16.0 g/dL Hematocrit 39 35-52 % Mean Corpuscular Volume 77 L 80-99 fL Mean Corpuscular Hemoglobin 23 L 25-34 pg Mean Corpuscular Hemoglobin Concent 30 L 32-36 g/dL Red Cell Distribution Width 18.2 H 10.0-14.5 % Platelet Count 254 130-400 10^3/uL Mean Platelet Volume 10.9 9.0-12.2 fL Immature Granulocyte % (Auto) 1 % Neutrophils (%) (Auto) 72 42-75 % Lymphocytes (%) (Auto) 19 12-44 % Monocytes (%) (Auto) 8 0-12 % Eosinophils (%) (Auto) 1 0-10 % Basophils (%) (Auto) 0 0-10 % Neutrophils # (Auto) 9.0 H 1.8-7.8 10^3/uL Lymphocytes # (Auto) 2.3 1.0-4.0 10^3/uL Monocytes # (Auto) 1.0 0.0-1.0 10^3/uL Eosinophils # (Auto) 0.1 0.0-0.3 10^3/uL Basophils # (Auto) 0.0 0.0-0.1 10^3/uL Immature Granulocyte # (Auto) 0.1 0.0-0.1 10^3/uL Prothrombin Time 14.6 12.2-14.7 SEC INR Comment 1.1 0.8-1.4 Activated Partial Thromboplast Time 28 24-35 SEC D-Dimer 19.08 H 0.00-0.49 UG/ML Sodium Level 135 135-145 MMOL/L Potassium Level 4.0 3.6-5.0 MMOL/L Chloride Level 105 98-107 MMOL/L Carbon Dioxide Level 16 L 21-32 MMOL/L Anion Gap 14 5-14 MMOL/L Blood Urea Nitrogen 14 7-18 MG/DL Creatinine 1.13 0.60-1.30 MG/DL Estimat Glomerular Filtration Rate 49 BUN/Creatinine Ratio 12 Glucose Level 148 H 70-105 MG/DL Lactic Acid Level 3.88 *H 5.17 *H 0.50-2.00 MMOL/L Calcium Level 10.4 H 8.5-10.1 MG/DL Corrected Calcium 10.2 H 8.5-10.1 MG/DL Total Bilirubin 0.4 0.1-1.0 MG/DL Aspartate Amino Transf (AST/SGOT) 19 5-34 U/L Alanine Aminotransferase (ALT/SGPT) 7 0-55 U/L Alkaline Phosphatase 96 40-136 U/L Troponin I 0.162 H <0.028 NG/ML B-Type Natriuretic Peptide 415.7 H <100.0 PG/ML Total Protein 7.7 6.4-8.2 GM/DL Albumin 4.3 3.2-4.5 GM/DL Urine Color YELLOW Urine Clarity CLEAR Urine pH 6.0 5-9 Urine Specific [place] >=1.030 1.016-1.022 Urine Protein 1+ H NEGATIVE Urine Glucose (UA) NEGATIVE NEGATIVE Urine Ketones NEGATIVE NEGATIVE Urine Nitrite NEGATIVE NEGATIVE Urine Bilirubin NEGATIVE NEGATIVE Urine Urobilinogen 1.0 < = 1.0 MG/DL Urine Leukocyte Esterase 1+ H NEGATIVE Urine RBC (Auto) NEGATIVE NEGATIVE Urine RBC NONE /HPF Urine WBC 25-50 H /HPF Urine Squamous Epithelial Cells 2-5 /HPF Urine Crystals NONE /LPF Urine Bacteria FEW H /HPF Urine Casts PRESENT /LPF Urine Hyaline Casts 5-10 H /LPF Urine Mucus LARGE H /LPF Urine Culture Indicated YES Test 05/14/21 01:10 05/14/21 04:13 05/14/21 04:59 05/14/21 06:10 Range/Units Lactic Acid Level 4.29 *H 4.16 *H 0.50-2.00 MMOL/L White Blood Count 10.1 4.3-11.0 10^3/uL Red Blood Count 4.52 3.80-5.11 10^6/uL Hemoglobin 10.5 L 11.5-16.0 g/dL Hematocrit 35 35-52 % Mean Corpuscular Volume 78 L 80-99 fL Mean Corpuscular Hemoglobin 23 L 25-34 pg Mean Corpuscular Hemoglobin Concent 30 L 32-36 g/dL Red Cell Distribution Width 18.1 H 10.0-14.5 % Platelet Count 213 130-400 10^3/uL Mean Platelet Volume 10.8 9.0-12.2 fL Immature Granulocyte % (Auto) 1 % Neutrophils (%) (Auto) 82 H 42-75 % Lymphocytes (%) (Auto) 14 12-44 % Monocytes (%) (Auto) 3 0-12 % Eosinophils (%) (Auto) 0 0-10 % Basophils (%) (Auto) 0 0-10 % Neutrophils # (Auto) 8.3 H 1.8-7.8 10^3/uL Lymphocytes # (Auto) 1.4 1.0-4.0 10^3/uL Monocytes # (Auto) 0.3 0.0-1.0 10^3/uL Eosinophils # (Auto) 0.0 0.0-0.3 10^3/uL Basophils # (Auto) 0.0 0.0-0.1 10^3/uL Immature Granulocyte # (Auto) 0.1 0.0-0.1 10^3/uL Sodium Level 136 135-145 MMOL/L Potassium Level 4.4 3.6-5.0 MMOL/L Chloride Level 109 H 98-107 MMOL/L Carbon Dioxide Level 13 L 21-32 MMOL/L Anion Gap 14 5-14 MMOL/L Blood Urea Nitrogen 15 7-18 MG/DL Creatinine 1.09 0.60-1.30 MG/DL Estimat Glomerular Filtration Rate 52 BUN/Creatinine Ratio 14 Glucose Level 207 H 70-105 MG/DL Calcium Level 9.3 8.5-10.1 MG/DL Troponin I 0.198 H <0.028 NG/ML Magnesium Level 2.0 1.6-2.4 MG/DL Blood Gas Puncture Site R RAD Blood Gas Patient Temperature 36.6 Arterial Blood pH 7.32 *L 7.37-7.43 Arterial Blood Partial Pressure CO2 24 L 35-45 MMHG Arterial Blood Partial Pressure O2 90 79-93 MMHG Arterial Blood HCO3 12 *L 23-27 MMOL/L Arterial Blood Total CO2 12.9 L 21.0-31.0 MMOL/L Arterial Blood Oxygen Saturation 97 94-100 % Arterial Blood Base Excess -12.8 L -2.5-2.5 MMOL/L Kraig Test YES-POS Blood Gas Ventilator Setting NO Blood Gas Inspired Oxygen 25% My Orders Orders - JOANN POSEY MD Norepinephrine 8 Mg/250 Ml (Norepinephri (05/14/21 08:00) Medications Given in ED Current Medications Medications Dose Ordered Sig/Carolann Route Start Time Stop Time Status Last Admin Dose Admin Enoxaparin Sodium 100 mg STK-MED ONCE .ROUTE 05/13/21 21:57 05/13/21 21:59 DC 05/13/21 22:00 90 MG Iohexol 100 ml ONCE ONCE IV 05/13/21 21:30 05/13/21 22:45 DC 05/13/21 21:42 80 ML Lorazepam 0.25 mg ONCE ONCE IVP 05/13/21 21:30 05/13/21 21:31 DC 05/13/21 21:50 0.25 MG Lorazepam 0.25 mg Q1H PRN IVP 05/14/21 04:45 05/14/21 04:39 0.25 MG Sodium Chloride 100 ml ONCE ONCE IV 05/13/21 21:30 05/13/21 22:45 DC 05/13/21 21:42 70 ML Vital Signs/I&O 05/13/21 05/13/21 05/13/21 05/13/21 19:15 19:15 19:15 20:00 Temp 35.7 Pulse 136 Resp 30 B/P (MAP) 119/65 (83) Pulse Ox 96 93 O2 Delivery Nasal Cannula Nasal Cannula Nasal Cannula Nasal Cannula O2 Flow Rate 3.00 3.00 2.00 2.00 05/14/21 05/14/21 05/14/21 05/14/21 00:35 00:35 00:45 01:00 Temp 36.5 Pulse 128 131 129 Resp 20 36 20 B/P (MAP) 102/80 (87) 102/80 (87) 108/80 (89) Pulse Ox 95 95 94 O2 Delivery OxyMask OxyMask OxyMask OxyMask O2 Flow Rate 5.00 5.00 5.00 5.00 05/14/21 05/14/21 05/14/21 05/14/21 01:05 01:15 01:30 01:45 Temp 35.7 Pulse 136 123 122 122 Resp 16 22 26 B/P (MAP) 105/73 (84) 105/67 (80) 85/76 (79) Pulse Ox 96 97 95 94 O2 Delivery OxyMask OxyMask OxyMask O2 Flow Rate 5.00 5.00 5.00 FiO2 28 05/14/21 05/14/21 05/14/21 05/14/21 02:00 02:44 02:49 03:30 Pulse 124 132 125 Resp 23 26 B/P (MAP) 107/77 (87) 111/52 (71) Pulse Ox 95 93 95 O2 Delivery OxyMask OxyMask OxyMask O2 Flow Rate 5.00 5.00 5.00 05/14/21 05/14/21 05/14/21 05/14/21 04:05 04:06 04:15 04:45 Temp 36.6 Pulse 124 Resp 29 B/P (MAP) 109/81 (90) Pulse Ox 93 95 O2 Delivery OxyMask OxyMask OxyMask NIV Bilevel O2 Flow Rate 5.00 5.00 5.00 25.00 05/14/21 05/14/21 05/14/21 05/14/21 04:47 05:00 06:00 07:00 Pulse 133 134 128 137 Resp 33 31 26 23 B/P (MAP) 122/65 (84) 110/63 (79) 112/94 (100) Pulse Ox 95 91 93 31 O2 Delivery NIV Bilevel NIV Bilevel O2 Flow Rate 25.00 25.00 25.00 05/14/21 05/14/21 07:00 07:15 Pulse 139 129 Resp 17 B/P (MAP) 115/96 (102) Pulse Ox 97 05/14/21 00:00 Intake Total 2305 ml Balance 2305 ml Blood Pressure Mean: 102 Progress Progress Note : Progress Note Arrives in ICU with CPR in progress. Compressions were continued. At 0621: Return of spontaneous circulation noted after second dose of epinephrine. Patient did have some movement of the arms. This was brief and then became pulseless again. Repeat epinephrine and CPR were were return of circulation. 0626: I did discuss the case with Dr. MURRAY. We have return of circulation currently. Patient current critical state due to bilateral pulmonary emboli with hemodynamic compromise. Patient does have some spontaneous breathing but is otherwise unresponsive and not protecting airway. We will elect to intubate the patient for airway protection and control of ventilation. This was discussed with the eICU team who agrees. 0637: Intubated after RSI with 20 mg o f etomidate and 100 mg of succinylcholine. 7.5 ET tube passed easily under guidance with glide scope. Post intubation sedation with fentanyl 50 mcg IV and Versed 2.5 mg IV. We did have color change and bilateral breath sounds with improvement in O2 saturation. I have asked for central line and arterial line. Dr. Murray updated and is coming in. 0647: Patient noted to be pulseless in PEA with tachycardic rate and code resumed. 0654: I have rearrived to the room. Patient did get 1 mg of epinephrine as well as 1 ampoule of bicarb. Compressions continued. 0655: Still without pulse and epinephrine 1 mg IV given. 0658: Pulse check notes patient did have faint pulse that is a sinus tachycardia. We did recheck O2 saturations and noted to have O2 saturation of 100% while on vent at rate of 20, PEEP of 10 and FiO2 100%. 0710: Dr. Murray is in route. I have discussed the case with Dr. Aguilar, surgeon on-call who will come in to do central line. Artline in progress. Patient remains critical with concerns for life ending illness. Patient left anterior eICU with Dr. Murray. JOANN POSEY MD May 14, 2021 08:14
--- NOTE | 2021-05-14 08:22 | Consultation - Surgery ---
History of Present Illness History of Present Illness Patient Consulted On(delia/time) 05/14/21 07:22 Date Seen by Provider: May 14, 2021 Time Seen by Provider: 07:22 History of Present Illness Consult for poor venous access. Patient is a 80 year old female that was admitted for saddle embolus. Patient has coded and had return of spontaneous circulation. Patient with poor venous access. She is currently intubated. No family at bedside. Patient on Lovenox for Embolus. Patient needing central line for better access. Allergies and Home Medications Allergies Coded Allergies: Iodinated Contrast Media (Unverified Allergy, Unknown, 08/04/11) Patient Home Medication List Home Medication List Reviewed: Yes Aspirin (Aspirin) 81 Mg Tab.chew, 81 MG PO DAILY, (Reported) Entered as Reported by: ELVA MEYER on 12/18/20 1005 Furosemide (Furosemide) 20 Mg Tablet, 20 MG PO DAILY, (Reported) Entered as Reported by: ELVA MEYER on 12/18/20 1005 Levothyroxine Sodium (Levothyroxine) 25 Mcg Capsule, 25 MCG PO DAILY, (Reported) Entered as Reported by: ELVA MEYER on 12/18/20 1005 Omeprazole (Omeprazole) 40 Mg Capsule.dr, 40 MG PO DAILY, (Reported) Entered as Reported by: ELVA MEYER on 12/18/20 1005 Paroxetine HCl (Paroxetine HCl) 20 Mg Tablet, 20 MG PO DAILY, (Reported) Entered as Reported by: ELVA MEYER on 12/18/20 1005 Past Rsfbeaz-Angaiw-Mzamgr Hx Patient Social History Smoking Status: Never a Smoker Alcohol Use?: No Have you traveled recently?: No Surgeries History of Surgeries: Yes (unable to obtain at this time.) Respiratory Respiratory Disorders: Pulmonary Embolism (patient unable to provide.) Reproductive System Hx Reproductive Disorders: No Reviewed Nursing Assessment Reviewed/Agree w Nursing PMH: Yes Family Medical History Significant Family History: No Pertinent Family Hx Review of Systems-General ROS-Unable to Obtain: patient intubated unable to provide. All Other Systems Reviewed Negative Unless Noted: Yes (Negative excepted noted.) Physical Exam-General Problems Physical Exam Vital Signs Vital Signs - First Documented 05/13/21 05/14/21 19:15 01:05 Temp 35.7 Pulse 136 Resp 30 B/P (MAP) 119/65 (83) Pulse Ox 96 FiO2 28 Capillary Refill : General Appearance: other (intubated and sedated) HEENT: normal ENT inspection, other (et tube) Neck: non-tender, supple Respiratory: other (equal chest rise) Cardiovascular: regular rate, rhythm, no JVD Gastrointestinal: non tender, soft Rectal: deferred Back: normal inspection Extremities: non-tender, no pedal edema Neurologic/Psychiatric: No alert, No oriented x 3; other (intubated/sedated) Skin: cool, mottled Lymphatic: no adenopathy Data Review Labs Laboratory Tests 05/13/21 19:30: Influenza Type A (RT-PCR) Not Detected, Influenza Type B (RT-PCR) Not Detected, SARS-CoV-2 RNA (RT-PCR) Not Detected 05/13/21 20:05: White Blood Count 12.5H, Red Blood Count 5.02, Hemoglobin 11.6, Hematocrit 39, Mean Corpuscular Volume 77L, Mean Corpuscular Hemoglobin 23L, Mean Corpuscular Hemoglobin Concent 30L, Red Cell Distribution Width 18.2H, Platelet Count 254, Mean Platelet Volume 10.9, Immature Granulocyte % (Auto) 1, Neutrophils (%) (Auto) 72, Lymphocytes (%) (Auto) 19, Monocytes (%) (Auto) 8, Eosinophils (%) (Auto) 1, Basophils (%) (Auto) 0, Neutrophils # (Auto) 9.0H, Lymphocytes # (Auto) 2.3, Monocytes # (Auto) 1.0, Eosinophils # (Auto) 0.1, Basophils # (Auto) 0.0, Immature Granulocyte # (Auto) 0.1, Prothrombin Time 14.6, INR Comment 1.1, Activated Partial Thromboplast Time 28, D-Dimer 19.08H, Sodium Level 135, Potassium Level 4.0, Chloride Level 105, Carbon Dioxide Level 16L, Anion Gap 14, Blood Urea Nitrogen 14, Creatinine 1.13, Estimat Glomerular Filtration Rate 49, BUN/Creatinine Ratio 12, Glucose Level 148H, Lactic Acid Level 3.88*H, Calcium Level 10.4H, Corrected Calcium 10.2H, Total Bilirubin 0.4, Aspartate Amino Transf (AST/SGOT) 19, Alanine Aminotransferase (ALT/SGPT) 7, Alkaline Phosphatase 96, Troponin I 0.162H, B-Type Natriuretic Peptide 415.7H, Total Protein 7.7, Albumin 4.3 05/13/21 21:05: Urine Color YELLOW, Urine Clarity CLEAR, Urine pH 6.0, Urine Specific [place] >=1.030, Urine Protein 1+H, Urine Glucose (UA) NEGATIVE, Urine Ketones NEGATIVE, Urine Nitrite NEGATIVE, Urine Bilirubin NEGATIVE, Urine Urobilinogen 1.0, Urine Leukocyte Esterase 1+H, Urine RBC (Auto) NEGATIVE, Urine RBC NONE, Urine WBC 25- 50H, Urine Squamous Epithelial Cells 2-5, Urine Crystals NONE, Urine Bacteria FEWH, Urine Casts PRESENT, Urine Hyaline Casts 5-10H, Urine Mucus LARGEH, Urine Culture Indicated YES 05/13/21 22:40: Lactic Acid Level 5.17*H 05/14/21 01:10: Lactic Acid Level 4.29*H 05/14/21 04:13: Lactic Acid Level 4.16*H, White Blood Count 10.1, Red Blood Count 4.52, Hemoglobin 10.5L, Hematocrit 35, Mean Corpuscular Volume 78L, Mean Corpuscular Hemoglobin 23L, Mean Corpuscular Hemoglobin Concent 30L, Red Cell Distribution Width 18.1H, Platelet Count 213, Mean Platelet Volume 10.8, Immature Granulocyte % (Auto) 1, Neutrophils (%) (Auto) 82H, Lymphocytes (%) (Auto) 14, Monocytes (%) (Auto) 3, Eosinophils (%) (Auto) 0, Basophils (%) (Auto) 0, Neutrophils # (Auto) 8.3H, Lymphocytes # (Auto) 1.4, Monocytes # (Auto) 0.3, Eosinophils # (Auto) 0.0, Basophils # (Auto) 0.0, Immature Granulocyte # (Auto) 0.1, Sodium Level 136, Potassium Level 4.4, Chloride Level 109H, Carbon Dioxide Level 13L, Anion Gap 14, Blood Urea Nitrogen 15, Creatinine 1.09, Estimat Glomerular Filtration Rate 52, BUN/Creatinine Ratio 14, Glucose Level 207H, Calcium Level 9.3, Troponin I 0.198H 05/14/21 04:59: Magnesium Level 2.0 05/14/21 06:10: Blood Gas Puncture Site R RAD, Blood Gas Patient Temperature 36.6, Arterial Blood pH 7.32*L, Arterial Blood Partial Pressure CO2 24L, Arterial Blood Partial Pressure O2 90, Arterial Blood HCO3 12*L, Arterial Blood Total CO2 12.9L, Arterial Blood Oxygen Saturation 97, Arterial Blood Base Excess -12.8L, Kraig Test YES-POS, Blood Gas Ventilator Setting NO, Blood Gas Inspired Oxygen 25% Assessment/Plan Assessment/Plan Assessment/Plan poor venous access saddle embolus Post code with ROSC Patient with limited venous access. WIll place u/s guided left femoral central line. WIll place emergently. PROCEDURE: U/S guided central line placement left femoral vein. U/s used to locate the left femoral vein. Under u/s guidance it was accessed and dark nonpulsatile blood withdrawn. Wire was inserted and needle removed. 11 blade scalpel used to make skin incision, dilator advance and removed. Tripple lumen catheter advanced over wire and wire removed. All ports accessed and flushed with saline. Catheter secured, and sterile bandage applied. MAMIE CARDENAS DO May 14, 2021 08:22
[2021-05-14] MEDS ORDERED: SODIUM BICARB 8.4% 50 MEQ/50 ML (ABBOTT) SYR INJ ONE (08:30)
[2021-05-14] MEDS ORDERED: EPINEPHrine 0.1 MG/ML 10 ML (HOSPIRA) SYR INJ ONE (08:30)
[2021-05-14] MEDS ORDERED: MIDAZOLAM 5 MG/5 ML (VERSED) VIAL INJ ONE (08:30)
[2021-05-14] MEDS ORDERED: SUCCINYLCHOLINE INJ 100 MG/5 ML SYR/VIAL INJ ONE (08:30)
[2021-05-14] MEDS ORDERED: fentaNYL INJ 100 MCG/2 ML AMP IV ONE (08:30)
[2021-05-14] MEDS ORDERED: ETOMIDATE IV SOLN 20 MG/10 ML VIAL IV ONE (08:30)
[2021-05-14] MEDS ORDERED: PARoxetine 20 MG (PAXIL) TAB PO SCH (09:00)
[2021-05-14] MEDS ORDERED: ASPIRIN E.C. 81 MG (ECOTRIN) TAB PO SCH (09:00)
--- NOTE | 2021-05-14 09:02 | Discharge Summary ---
Discharge Summary Date of Admission May 13, 2021 at 23:59 Date of Discharge 05/14/2021 Discharge Date: May 14, 2021 Discharge Time: 08:40 Admission Diagnosis EXTENSIVE PULMONARY EMBOLUS Consults/Procedures Consulations DR. THERESA LOVELACE Procedures CENTRAL LINE PLACEMENT INTUBATION CODE Comfort Measures/ End of Life Care: Comfort Measures Advance Care discuss with: family member (s) (PATIENT'S SONS) Plan: initiate discussion, clarifying prognosis Cardiopulmonary Arrest: Cardiac Arrest Date of : May 14, 2021 Time of : 08:40 PT WAS ADMITTED THROUGH THE ER WITH DIAGNOSIS OF EXTENSIVE PULMONARY EMBOLI, RESPIRATORY FAILURE PT UNDERWENT A CODE DUE TO CARDIAC ARREST AROUND 0645, THEN CODED AGAIN AROUND 0710 AND AGAIN AT 0740, FAMILY WAS PRESENT AND DECIDED AGAINST FURTHER RESUSCITATIVE MEASURES. THE PATIENT BECAME BRADYCARDIC AND AGAIN WENT INTO CARDIAC ARREST AROUND 0840. PT'S SONS ZEESHAN AND EDWIGE WERE IN THE ROOM AT THE TIME OF THE PT PASSING. REVIEW OF HER CT SCAN WITH HER SONS TO SHOW THE EXTENT OF THE PULMONARY EMBOLI. Discharge Diagnosis PULMONARY EMBOLI, EXTENSIVE RESPIRATORY FAILURE CARDIAC ARREST (1) Pulmonary embolism Status: Acute Qualifiers: Qualified Codes: I26.09 - Other pulmonary embolism with acute cor pulmonale (2) Acute respiratory failure with hypoxemia Status: Acute KHURRAM BAUTISTA MD May 14, 2021 09:02
--- NOTE | 2021-05-14 09:40 | Consultation-Cardiology ---
HPI-Cardiology Cardiology Consultation: Date of Consultation 05/14/21 Time Seen by a Provider: 08:20 Date of Admission Attending Physician Adalgisa Murray MD Admitting Physician Adalgisa Murray MD Consulting Physician FARRAH KELLY MD, MA, FACP, FACC, FSCAI, CCDS HPI: 80 yo woman admitted with large PE with symptoms extending to 2 weeks prior to presentation. Review of Systems-Cardiology All Other Systems Reviewed Negative Unless Noted: Yes (Negative excepted noted.) [id number] Hx Patient Social History Smoking Status: Never a Smoker Have you traveled recently?: No Alcohol Use?: No Pt feels they are or have been: No Past Medical History PMH As described under Assessment. Allergies and Home Medications Allergies Coded Allergies: Iodinated Contrast Media (Unverified Allergy, Unknown, 08/04/11) Patient Home Medication List Home Medication List Reviewed: Yes Aspirin (Aspirin) 81 Mg Tab.chew, 81 MG PO DAILY, (Reported) Entered as Reported by: ELVA MEYER on 12/18/20 100 Furosemide (Furosemide) 20 Mg Tablet, 20 MG PO DAILY, (Reported) Entered as Reported by: ELVA MEYER on 12/18/20 100 Levothyroxine Sodium (Levothyroxine) 25 Mcg Capsule, 25 MCG PO DAILY, (Reported) Entered as Reported by: ELVA MEYER on 12/18/20 100 Omeprazole (Omeprazole) 40 Mg Capsule.dr, 40 MG PO DAILY, (Reported) Entered as Reported by: ELVA MEYER on 12/18/20 100 Paroxetine HCl (Paroxetine HCl) 20 Mg Tablet, 20 MG PO DAILY, (Reported) Entered as Reported by: ELVA MEYER on 12/18/20 1005 Physical Exam-Cardiology Physical Exam Vital Signs/I&O 05/14/21 05/14/21 05/14/21 05/14/21 00:35 00:35 00:45 01:00 Temp 36.5 Pulse 128 131 129 Resp 20 36 20 B/P (MAP) 102/80 (87) 102/80 (87) 108/80 (89) Pulse Ox 95 95 94 O2 Delivery OxyMask OxyMask OxyMask OxyMask O2 Flow Rate 5.00 5.00 5.00 5.00 05/14/21 05/14/21 05/14/21 05/14/21 01:05 01:15 01:30 01:45 Temp 35.7 Pulse 136 123 122 122 Resp 16 22 26 B/P (MAP) 105/73 (84) 105/67 (80) 85/76 (79) Pulse Ox 96 97 95 94 O2 Delivery OxyMask OxyMask OxyMask O2 Flow Rate 5.00 5.00 5.00 FiO2 28 05/14/21 05/14/21 05/14/21 05/14/21 02:00 02:44 02:49 03:30 Pulse 124 132 125 Resp 23 26 B/P (MAP) 107/77 (87) 111/52 (71) Pulse Ox 95 93 95 O2 Delivery OxyMask OxyMask OxyMask O2 Flow Rate 5.00 5.00 5.00 05/14/21 05/14/21 05/14/21 05/14/21 04:05 04:06 04:15 04:45 Temp 36.6 Pulse 124 Resp 29 B/P (MAP) 109/81 (90) Pulse Ox 93 95 O2 Delivery OxyMask OxyMask OxyMask NIV Bilevel O2 Flow Rate 5.00 5.00 5.00 25.00 05/14/21 05/14/21 05/14/21 05/14/21 04:47 05:00 06:00 07:00 Pulse 133 134 128 137 Resp 33 31 26 23 B/P (MAP) 122/65 (84) 110/63 (79) 112/94 (100) Pulse Ox 95 91 93 31 O2 Delivery NIV Bilevel NIV Bilevel O2 Flow Rate 25.00 25.00 25.00 05/14/21 05/14/21 07:00 07:15 Pulse 139 129 Resp 17 B/P (MAP) 115/96 (102) Pulse Ox 97 05/14/21 00:00 Intake Total 2305 ml Balance 2305 ml Capillary Refill : Rectal: deferred Lymphatic: no adenopathy Data Review Labs Laboratory Tests 05/13/21 19:30: Influenza Type A (RT-PCR) Not Detected, Influenza Type B (RT-PCR) Not Detected, SARS-CoV-2 RNA (RT-PCR) Not Detected 05/13/21 20:05: White Blood Count 12.5H, Red Blood Count 5.02, Hemoglobin 11.6, Hematocrit 39, Mean Corpuscular Volume 77L, Mean Corpuscular Hemoglobin 23L, Mean Corpuscular Hemoglobin Concent 30L, Red Cell Distribution Width 18.2H, Platelet Count 254, Mean Platelet Volume 10.9, Immature Granulocyte % (Auto) 1, Neutrophils (%) (Auto) 72, Lymphocytes (%) (Auto) 19, Monocytes (%) (Auto) 8, Eosinophils (%) (Auto) 1, Basophils (%) (Auto) 0, Neutrophils # (Auto) 9.0H, Lymphocytes # (Aut o) 2.3, Monocytes # (Auto) 1.0, Eosinophils # (Auto) 0.1, Basophils # (Auto) 0.0, Immature Granulocyte # (Auto) 0.1, Prothrombin Time 14.6, INR Comment 1.1, Activated Partial Thromboplast Time 28, D-Dimer 19.08H, Sodium Level 135, Pota ssium Level 4.0, Chloride Level 105, Carbon Dioxide Level 16L, Anion Gap 14, Blood Urea Nitrogen 14, Creatinine 1.13, Estimat Glomerular Filtration Rate 49, BUN/Creatinine Ratio 12, Glucose Level 148H, Lactic Acid Level 3.88*H, Calcium Level 10.4H, Corrected Calcium 10.2H, Total Bilirubin 0.4, Aspartate Amino Transf (AST/SGOT) 19, Alanine Aminotransferase (ALT/SGPT) 7, Alkaline Phosphatase 96, Troponin I 0.162H, B-Type Natriuretic Peptide 415.7H, Total Protein 7.7, Albumin 4.3 05/13/21 21:05: Urine Color YELLOW, Urine Clarity CLEAR, Urine pH 6.0, Urine Specific [place] >=1.030, Urine Protein 1+H, Urine Glucose (UA) NEGATIVE, Urine Ketones NEGATIVE, Urine Nitrite NEGATIVE, Urine Bilirubin NEGATIVE, Urine Urobilinogen 1.0, Urine Leukocyte Esterase 1+H, Urine RBC (Auto) NEGATIVE, Urine RBC NONE, Urine WBC 25- 50H, Urine Squamous Epithelial Cells 2-5, Urine Crystals NONE, Urine Bacteria FEWH, Urine Casts PRESENT, Urine Hyaline Casts 5-10H, Urine Mucus LARGEH, Urine Culture Indicated YES 05/13/21 22:40: Lactic Acid Level 5.17*H 05/14/21 01:10: Lactic Acid Level 4.29*H 05/14/21 04:13: Lactic Acid Level 4.16*H, White Blood Count 10.1, Red Blood Count 4.52, Hemoglobin 10.5L, Hematocrit 35, Mean Corpuscular Volume 78L, Mean Corpuscular Hemoglobin 23L, Mean Corpuscular Hemoglobin Concent 30L, Red Cell Distribution Width 18.1H, Platelet Count 213, Mean Platelet Volume 10.8, Immature Granulocyte % (Auto) 1, Neutrophils (%) (Auto) 82H, Lymphocytes (%) (Auto) 14, Monocytes (%) (Auto) 3, Eosinophils (%) (Auto) 0, Basophils (%) (Auto) 0, Neutrophils # (Auto) 8.3H, Lymphocytes # (Auto) 1.4, Monocytes # (Auto) 0.3, Eosinophils # (Auto) 0.0, Basophils # (Auto) 0.0, Immature Granulocyte # (Auto) 0.1, Sodium Level 136, Potassium Level 4.4, Chloride Level 109H, Carbon Dioxide Level 13L, Anion Gap 14, Blood Urea Nitrogen 15, Creatinine 1.09, Estimat Glomerular Filtration Rate 52, BUN/Creatinine Ratio 14, Glucose Level 207H, Calcium Level 9.3, Troponin I 0.198H 05/14/21 04:59: Magnesium Level 2.0, Triglycerides Level 81 05/14/21 06:10: Blood Gas Puncture Site R RAD, Blood Gas Patient Temperature 36.6, Arterial Blood pH 7.32*L, Arterial Blood Partial Pressure CO2 24L, Arterial Blood Partial Pressure O2 90, Arterial Blood HCO3 12*L, Arterial Blood Total CO2 12.9L, Arterial Blood Oxygen Saturation 97, Arterial Blood Base Excess -12.8L, Rkaig Test YES-POS, Blood Gas Ventilator Setting NO, Blood Gas Inspired Oxygen 25% A/P-Cardiology Assessment/Admission Diagnosis Admitted with very large PE: large thrombus burden extending into all 5 lobar and segmental arteries. Interventional service at [facility] reviewed the data and found patient's PE to un-amenable to intervention, recommended medical therapy. Anticoagulation initiated and pt admitted and evaluated by EICU. Had cardio-resp arrest this am. Placed on [facility] vent. Had cardio-resp arrest again. I remained in touch with Dr Murray through these arrests. Prognosis appeared dismal. Thrombolytic therapy was considered, although likelihood of success with that was very poor, given [address] Murray spoke with the family. Family decided on no further therapy after 2 Code Blue episodes this am. FARRAH KELLY MD FACP FACC CCDS May 14, 2021 09:40
[2021-05-14] MEDS ORDERED: ENOXAPARIN 100 MG/1 ML (LOVENOX) SYR SC SCH (10:00)
== END 2021-05-14 10:32 | disposition expired | DRG 175 ==
LOC: EDUNIT# 19:15 → ER 19:17 → ICU 23:59 → CSD 05-14 → ICU 05-14 00:32
PROVIDERS: ADMIT Family Medicine; ATTEND Family Medicine
PROC: 5A12012 Performance of Cardiac Output, Single, Manual (ICD-10-PCS; principal; 2021-05-14)
PROC: 0BH17EZ Insertion of Endotracheal Airway into Trachea, Via Natural or Artificial Opening (ICD-10-PCS; 2021-05-14)
PROC: 5A09357 Assistance with Respiratory Ventilation, Less than 24 Consecutive Hours, Continuous Positive Airway Pressure (ICD-10-PCS; 2021-05-14)
PROC: 8E0ZXY6 Isolation (ICD-10-PCS; 2021-05-14)
DX: I26.92 Saddle embolus of pulmonary artery without acute cor pulmonale (principal); J96.01 Acute respiratory failure with hypoxia; I50.9 Heart failure, unspecified; J44.9 Chronic obstructive pulmonary disease, unspecified; I48.91 Unspecified atrial fibrillation; Z51.5 Encounter for palliative care; Z66 Do not resuscitate; Z20.822 Contact with and (suspected) exposure to COVID-19; Z79.82 Long term (current) use of aspirin; Z91.041 Radiographic dye allergy status
CPT/HCPCS: 36415; 71045; 71275; 80048; 80053; 81000; 82805; 83605; 83735; 83880; 84478; 84484; 85025; 85379; 85610; 85730; 86769; 87040; 87081; 87088; 87636; 93005; 94002; 94640; 94660; 94760; 96361; 96365; 96367; 96372; 96375